=== PATIENT | male | born 1955 | race Caucasian/White ===

== ENCOUNTER 2016-07-21 20:33 | Emergency (ER) | payer OTHER ==
--- NOTE | 2016-07-22 00:38 | ER Document Report ---
ED General - General Chief Complaint: Leg Swelling Stated Complaint: POSSIBLE BLOOD CLOT ON LEFT LEG Notes: Patient presents with concerns of acute onset of left medial malleolus swelling just prior to arrival. States that he has had a dull, constant, aching pain to the area. Has some associated swelling. States the swelling has dramatically gone down since onset without intervention. He denies any history of similar symptoms in the past. Denies any associated calf or more proximal leg tenderness. No fever or constitutional symptoms. Has not noticed any spreading redness the area. TRAVEL OUTSIDE OF THE [place] IN LAST 30 DAYS: No - Related Data Allergies/Adverse Reactions: oxycodone HCl [From Percocet] Allergy (Severe, Verified 07/21/16 21:37) trouble breathing Past Medical History - General Information source: Patient - Social History Smoking Status: Never Smoker Chew tobacco use (# tins/day): No Frequency of alcohol use: None Drug Abuse: None Lives with: Spouse/Significant other Family History: Reviewed & Not Pertinent Patient has suicidal ideation: No Patient has homicidal ideation: No - Past Medical History Cardiac Medical History: Reports: Hx Hypertension Denies: Hx Atrial Fibrillation, Hx Congestive Heart Failure, Hx Coronary Artery Disease, Hx Heart Attack, Hx Hypercholesterolemia, Hx Peripheral Vascular Disease, Hx Pulmonary Embolism, Hx Heart Murmur Pulmonary Medical History: Denies: Hx Asthma, Hx Bronchitis, Hx COPD, Hx Pneumonia - 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 Denies: Hx Crohn's Disease, Hx Hiatal Hernia, Hx Irritable Bowel, Hx Liver Failure, Hx Ulcer Musculoskeltal Medical History: Reports Hx Arthritis, Reports Hx Musculoskeletal Deformity, Reports Hx Musculoskeletal Trauma Past Surgical History: Reports: Hx Abdominal Surgery, Hx Appendectomy, Hx Bowel Surgery, Hx Cholecystectomy, Hx Orthopedic Surgery - right knee, Hx Tonsillectomy. Denies: Hx Colostomy, Hx Coronary Artery Bypass Graft, Hx Gastric Bypass Surgery, Hx Herniorrhaphy, Hx Pacemaker - Immunizations Immunizations up to date: Yes Hx Diphtheria, Pertussis, Tetanus Vaccination: Yes - unk Review of Systems - Review of Systems Notes: Constitutional: Negative for fever. HENT: Negative for sore throat. Eyes: Negative for visual changes. Cardiovascular: Negative for chest pain. Respiratory: Negative for shortness of breath. Gastrointestinal: Negative for abdominal pain, vomiting or diarrhea. Genitourinary: Negative for dysuria. Musculoskeletal: Positive for left ankle pain and swelling Skin: Negative for rash. Neurological: Negative for headaches, weakness or numbness. 10 point ROS negative except as marked above and in HPI. Physical Exam - Vital signs Vitals: Temp Pulse Resp BP Pulse Ox 97.9 F 73 18 147/87 H 95 07/21/16 21:37 07/21/16 21:37 07/21/16 21:37 07/21/16 21:37 07/21/16 21:37 Interpretation: Hypertensive Notes: PHYSICAL EXAMINATION: GENERAL: Well-appearing, well-nourished and in no acute distress. HEAD: Atraumatic, normocephalic. EYES: Pupils equal round and reactive to light, extraocular movements intact, sclera anicteric, conjunctiva are normal. ENT: nares patent, oropharynx clear without exudates. Moist mucous membranes. NECK: Normal range of motion, supple without lymphadenopathy LUNGS: Breath sounds clear to auscultation bilaterally and equal. No wheezes rales or rhonchi. HEART: Regular rate and rhythm without murmurs ABDOMEN: Soft, nontender, normoactive bowel sounds. No guarding, no rebound. No masses appreciated. EXTREMITIES: Normal range of motion, mild swelling to the medial malleolus on the left. No pain on palpation left posterior proximal leg or the popliteal fossa. NEUROLOGICAL: No focal neurological deficits. Moves all extremities spontaneously and on command. PSYCH: Normal mood, normal affect. SKIN: Warm, Dry, normal turgor, mild swelling to the medial malleolus on the left Course - Re-evaluation Re-evalutation: 07/22/16 00:32 No evidence of a septic joint, gout flare, dislocation, or fracture on exam and imaging. Given clinical history suspect the patient does have a mild amount of osteoarthritis may have had an acute inflammatory episode that is now mostly resolved. I do not suspect an acute DVT as patient has no calf tenderness, popliteal fossa tenderness or pain over any other portion of the leg and has localized swelling only to the medial malleolus. Well's score is 0 and I do not believe further imaging is indicated at this time. Vitals wnl. At this time , I do not see an indication for labs or further imaging. Will discharge with conservative measures, return precautions, and follow-up recommendations. - Vital Signs Vital signs: Temp Pulse Resp BP Pulse Ox 97.5 F 66 20 135/85 H 95 07/22/16 01:40 07/22/16 01:40 07/22/16 01:40 07/22/16 01:40 07/22/16 01:40 - Diagnostic Test Radiology reviewed: Image reviewed, Reports reviewed Discharge - Discharge Clinical Impression: Left ankle pain Qualifiers: Chronicity: acute Qualified Code(s): M25.572 - Pain in left ankle and joints of left foot Condition: Good Disposition: HOME, SELF-CARE Additional Instructions: Your x-ray does not show any acute fracture today. I do not suspect a blood clot at this time. You should continue to take anti-inflammatories such as ibuprofen 600 mg every 6 hours. Continue to apply ice to the area is much your able. Please follow-up with your primary care physician if you do not have improving your symptoms in the next 1-2 weeks. Please return immediately if you develop weakness, numbness, spreading redness from the area, or any other symptoms that are concerning to you. Referrals: DAREK HERNANDEZ MD [Primary Care Provider] - Follow up as needed
[2016-07-22 01:41] VITALS: BP 135/85
== END 2016-07-22 01:00 | disposition home or self-care (01) ==
LOC: ER 20:33
DX: M25.572 Pain in left ankle and joints of left foot (principal); M79.89 Other specified soft tissue disorders
CPT/HCPCS: 99283

== ENCOUNTER 2017-03-17 21:10 | Inpatient (IN) | payer OTHER ==
[2017-03-17] MEDS ORDERED: NORMAL SALINE 1000 ML 1,000 ML IV ONE (23:22)
[2017-03-17] MEDS ORDERED: ONDANSETRON HCL INJ/PF 4 MG/2 ML SDV IV ONE (23:22)
[2017-03-17 23:58] LABS: ABSOLUTE LYMPHOCYTES (AUTO) 1.2 10^3/uL (0.5-4.7); ABSOLUTE MONOCYTES (AUTO) 0.4 10^3/uL (0.1-1.4); ABSOLUTE NEUT (AUTO) 8.9 10^3/uL (1.7-8.2); BASOPHILS % (AUTO) 0.4 % (0-2); EOSINOPHILS % (AUTO) 0.3 % (0-6); HEMATOCRIT 51.2 % (37.9-51.0); HEMOGLOBIN 17.8 g/dL (13.5-17.0); LYMPHOCYTES % (AUTO) 11.7 % (13-45); MEAN CORPUSCULAR HGB CONC 34.7 g/dL (32.0-36.0); MEAN CORPUSCULAR VOLUME 90 fl (80-97); MONOCYTES % (AUTO) 4.1 % (3-13); PLATELET COUNT 248 10^3/uL (150-450); RED BLOOD COUNT 5.73 10^6/uL (4.35-5.55); SEGMENTED NEUTROPHILS % (AUTO) 83.5 % (42-78); TOTAL CELLS COUNTED % (AUTO) 100 %; WHITE BLOOD COUNT 10.6 10^3/uL (4.0-10.5)
[2017-03-18 00:16] LABS: ALANINE AMINOTRANSFERASE 50 U/L (21-72); ALBUMIN 4.7 g/dL (3.5-5.0); ALKALINE PHOSPHATASE 73 U/L (38-126); ANION GAP 15 (5-19); ASPARTATE AMINO TRANSFERASE 29 U/L (17-59); BILIRUBIN,DIRECT 0.5 mg/dL (0.0-0.4); BILIRUBIN,TOTAL 0.7 mg/dL (0.2-1.3); BLOOD UREA NITROGEN 18 mg/dL (7-20); CALCIUM 10.4 mg/dL (8.4-10.2); CARBON DIOXIDE 25 mmol/L (22-30); CHLORIDE 102 mmol/L (98-107); GLUCOSE 139 mg/dL (75-110); LIPASE 61.4 U/L (23-300); POTASSIUM 4.5 mmol/L (3.6-5.0); SODIUM 141.9 mmol/L (137-145); TOTAL PROTEIN 7.8 g/dL (6.3-8.2)
--- NOTE | 2017-03-18 00:37 | ER Document Report ---
ED General - General Chief Complaint: Nausea/Vomiting/Diarrhea Stated Complaint: ABDOMINAL PAIN Time Seen by Provider: 03/17/17 23:21 Notes: Patient is a 61-year-old male with a past medical history of a sigmoid colectomy , cholecystectomy, hypertension, hyperlipidemia, who presents with 3 days of progressively worsening abdominal distention, diarrhea, nausea and vomiting. Patient states the vomiting did not start until today. He also notes that he began to have increasingly worsening abdominal pain throughout the day today which eventually prompted him to come to the emergency department. He describes his abdominal pain is a diffuse, cramping, throbbing pain. Nothing improves or worsens his pain. He denies any history of similar symptoms in the past. He has not had any fever or constitutional symptoms. States he has been able to tolerate sips of clear liquid but is unable to tolerate any solid food intake. TRAVEL OUTSIDE OF THE [place] IN LAST 30 DAYS: No - Related Data Allergies/Adverse Reactions: oxycodone HCl [From Percocet] Allergy (Severe, Verified 03/17/17 21:18) trouble breathing Past Medical History - General Information source: Patient - Social History Smoking Status: Never Smoker Frequency of alcohol use: None Drug Abuse: None Lives with: Spouse/Significant other Family History: Reviewed & Not Pertinent Patient has suicidal ideation: No Patient has homicidal ideation: No - Past Medical History Cardiac Medical History: Reports: Hx Hypertension Denies: Hx Atrial Fibrillation, Hx Congestive Heart Failure, Hx Coronary Artery Disease, Hx Heart Attack, Hx Hypercholesterolemia, Hx Peripheral Vascular Disease, Hx Pulmonary Embolism, Hx Heart Murmur Pulmonary Medical History: Denies: Hx Asthma, Hx Bronchitis, Hx COPD, Hx Respiratory Failure, Hx Sleep Apnea, Hx Tuberculosis Comment Only: Hx Pneumonia - 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 Denies: Hx Crohn's Disease, Hx Hiatal Hernia, Hx Irritable Bowel, Hx Liver Failure, Hx Pancreatitis, Hx Ulcer Musculoskeltal Medical History: Reports Hx Arthritis, Reports Hx Musculoskeletal Deformity, Reports Hx Musculoskeletal Trauma Past Surgical History: Reports: Hx Abdominal Surgery, Hx Appendectomy, Hx Bowel Surgery, Hx Cholecystectomy, Hx Orthopedic Surgery - right knee, Hx Tonsillectomy. Denies: Hx Colostomy, Hx Coronary Artery Bypass Graft, Hx Gastric Bypass Surgery, Hx Herniorrhaphy, Hx Pacemaker - Immunizations Immunizations up to date: Yes Hx Diphtheria, Pertussis, Tetanus Vaccination: Yes - unk Review of Systems - Review of Systems Notes: Constitutional: Negative for fever. HENT: Negative for sore throat. Eyes: Negative for visual changes. Cardiovascular: Negative for chest pain. Respiratory: Negative for shortness of breath. Gastrointestinal: Positive for abdominal pain, vomiting and diarrhea Genitourinary: Negative for dysuria. Musculoskeletal: Negative for back pain. Skin: Negative for rash. Neurological: Negative for headaches, weakness or numbness. 10 point ROS negative except as marked above and in HPI. Physical Exam - Vital signs Vitals: Temp Pulse Resp BP Pulse Ox 98.1 F 92 18 130/86 H 98 03/17/17 21:18 03/17/17 21:18 03/17/17 21:18 03/17/17 21:18 03/17/17 21:18 Interpretation: Normal Notes: PHYSICAL EXAMINATION: GENERAL: Appears uncomfortable no acute distress HEAD: Atraumatic, normocephalic. EYES: Pupils equal round and reactive to light, extraocular movements intact, sclera anicteric, conjunctiva are normal. ENT: nares patent, oropharynx clear without exudates. Dry mucous membranes. NECK: Normal range of motion, supple without lymphadenopathy LUNGS: Breath sounds clear to auscultation bilaterally and equal. No wheezes rales or rhonchi. HEART: Regular rate and rhythm without murmurs ABDOMEN: Distended, protuberant abdomen. Bowel sounds are present. Tympanic to percussion. Diffuse tenderness to palpation most localized to the upper quadrants of the abdomen. No rebound or guarding. EXTREMITIES: Normal range of motion, no pitting or edema. No cyanosis. NEUROLOGICAL: No focal neurological deficits. Moves all extremities spontaneously and on command. PSYCH: Normal mood, normal affect. SKIN: Warm, Dry, normal turgor, no rashes or lesions noted. Course - Re-evaluation Re-evalutation: 03/18/17 00:17 Patient presents with vomiting, inability to tolerate solid oral intake, abdominal distention, and only liquid bowel movements for the past 2 days. Primary concern is for a possible acute bowel obstruction given his surgical history of a partial colectomy and cholecystectomy in the past. Will obtain labs, CT imaging of the pelvis and provide IV fluids, pain control and reassess 03/18/17 02:24 CT scan does confirm my clinical suspicion of an acute bowel obstruction. NG tube will be placed. I have discussed with Dr. Erickson was agreed to admit the patient to his service. - Vital Signs Vital signs: Temp Pulse Resp BP Pulse Ox 97.7 F 80 20 126/82 H 97 03/18/17 00:01 03/18/17 00:01 03/18/17 00:01 03/18/17 00:01 03/18/17 00:01 - Laboratory Result Diagrams: 03/17/17 23:45 03/17/17 23:45 Laboratory results interpreted by me: 03/17/17 03/17/17 23:45 23:45 WBC 10.6 H RBC 5.73 H Hgb 17.8 H Hct 51.2 H Seg Neutrophils % 83.5 H Lymphocytes % 11.7 L Absolute Neutrophils 8.9 H Creatinine 1.41 H Est GFR (Non-Af Amer) 51 L Glucose 139 H Calcium 10.4 H Direct Bilirubin 0.5 H - Diagnostic Test Radiology reviewed: Reports reviewed Discharge - Discharge Clinical Impression: Persistent vomiting, Generalized abdominal pain Bowel obstruction Qualifiers: Intestinal obstruction type: unspecified Intestinal obstruction extent: partial Qualified Code(s): K56.600 - Partial intestinal obstruction, unspecified as to cause Condition: Fair Disposition: ADMITTED INPATIENT Admitting Provider: [facility] Unit Admitted: Surgical Floor Referrals: DAREK HERNANDEZ MD [Primary Care Provider] - Follow up as needed
[2017-03-18] MEDS: MORPHINE SULFATE 10 MG/ML INJ IV PRN ×3 (01:04→22:23)
--- NOTE | 2017-03-18 01:57 | RADIOLOGY REPORT (SQ) ---
EXAM DESCRIPTION: CT ABD/PELVIS WITH IV ONLY COMPLETED DATE/TIME: 03/18/2017 1:37 am REASON FOR STUDY: eval obstruction COMPARISON: None. TECHNIQUE: CT scan of the abdomen and pelvis performed using helical scanning technique with dynamic intravenous contrast injection. No oral contrast. Images reviewed with lung, soft tissue, and bone windows. Reconstructed coronal and sagittal MPR images reviewed. Delayed images for evaluation of the urinary system also acquired. All images stored on PACS. All CT scanners at this facility use dose modulation, iterative reconstruction, and/or weight based d osing when appropriate to reduce radiation dose to as low as reasonably achievable (ALARA). [facility]: Dose Right [facility]: CareDose [facility]: Dose Right [facility]: Teradose 4D [facility]: Admetric CONTRAST TYPE AND DOSE: contrast/concentration: Isovue 370.00 mg/ml; Total Contrast Delivered: 100.0 ml; Total Saline Delivered: 40.0 ml RENAL FUNCTION: Creatinine 1.41 RADIATION DOSE: CT Rad equipment meets quality standard of care and radiation dose reduction techniq ues were employed. CTDIvol: 19.8 mGy. DLP: 2329 mGy-cm.. LIMITATIONS: None. FINDINGS: LOWER CHEST: No consolidation or pleural effusion. LIVER: Diffuse decreased attenuation, most consistent with fatty infiltration. No dilated ducts. SPLEEN: Normal size. PANCREAS: No significant calcifications. No adjacent inflammation or peripancreatic fluid collections . Pancreatic duct not dilated. GALLBLADDER: Surgically absent. ADRENAL GLANDS: No significant masses or asymmetry. RIGHT KIDNEY AND URETER: 4 mm nonobstructing calcification at the inferior pole of the right kidney. No hydronephrosis or hydroureter. LEFT KIDNEY AND URETER: There is a 3.5 cm cyst at the inferior pole of the left kidney. No signific ant calcifications. No hydronephrosis or hydroureter. AORTA AND VESSELS: No abdominal aortic aneurysm. RETROPERITONEUM: No retroperitoneal adenopathy, hemorrhage or masses. BOWEL AND PERITONEAL CAVITY: The stomach is distended with an air-fluid level. Air-fluid levels are also seen within dilated small bowel loops. Collapsed loops of bowels are seen in the midline anteri or abdomen. Air-fluid levels are seen within nondilated colon. Scattered diverticula at the colon w ith no CT evidence for acute diverticulitis. APPENDIX: Not visualized. PELVIS: The urinary bladder is decompressed. No pelvic mass or free fluid. ABDOMINAL WALL: Small fat containing umbilical hernia. Small fat containing left inguinal hernia. BONES: Degenerative changes in the spine, worse at L5-S1 with complete loss of the intervertebral dis c space. Pars defect at L5. No significant listhesis. IMPRESSION: Distended stomach with an air-fluid level and air-fluid levels within dilated small lisa l loops, concerning for small bowel obstruction. Fatty infiltration of the liver. Nonobstructing right nephrolithiasis. Left renal cyst. Mild colonic diverticulosis. TECHNICAL DOCUMENTATION: JOB ID: [id number] Quality ID # [id number]: Final reports with documentation of one or more dose reduction techniques (e.g., Au tomated exposure control, adjustment of the mA and/or kV according to patient size, use of iterative reconstruction technique) 2010 [employer]- All Rights Reserved
[2017-03-18] MEDS ORDERED: MIDAZOLAM 2 MG/2 ML INJ IV ONE (02:13)
[2017-03-18] MEDS ORDERED: ONDANSETRON HCL INJ/PF 4 MG/2 ML SDV IV PRN (02:47)
[2017-03-18] MEDS ORDERED: KETOROLAC TROMETHAMINE INJ/PF 30 MG/1 ML SDV IV PRN (02:47)
[2017-03-18] MEDS ORDERED: NORMAL SALINE 1000 ML 2,000 ML IV ONE (04:04)
--- NOTE | 2017-03-18 05:58 | HISTORY AND PHYSICAL E ---
History and Physical NAME: TOM BRADEN : 1955 AGE: 61Y ADMITTED: 03/18/2017 ROOM: 316 REFERRING PHYSICIAN: Patient seen at the request of Dr. Ralph Stratton in the emergency department. CHIEF COMPLAINT: Abdominal pain. HISTORY OF PRESENTING ILLNESS: The patient is a 61-year-old white male, originally from [place], who presented to the emergency department with a progressive worsening 3-day history of abdominal pain, nausea, diarrhea, and 1-day history of vomiting. He denies similar episodes. He denies history of trauma or previous abdominal issues. He was seen in the emergency department where he was found to have abdominal distention. A CT scan of the abdomen and pelvis was performed which showed findings consistent with a small-bowel obstruction. Surgery was consulted. He was advised admission. Patient stated there was no improvement with p.o. [id number] pain medications. He has never had a bowel obstruction before. He has had previous abdominal surgery. ALLERGIES: PENICILLIN causes trouble breathing. MEDICATIONS: Multiple including lisinopril, amlodipine, aspirin, phentermine, loratadine, trazodone, finasteride, proton pump inhibitor, fenofibrate. IMMUNIZATIONS: Up to date. SOCIAL HISTORY: Patient does not smoke. He works from home. PAST MEDICAL HISTORY: Significant for hypertension, obesity, history of fungal infection left lung, history of GERD, history of arthritis, anxiety disorder. PAST SURGICAL HISTORY: Significant for open cholecystectomy; open sigmoid colectomy for diverticular disease in 1999; previous colonoscopy 2 years ago, Dr. Morris, unremarkable. REVIEW OF SYSTEMS: CONSTITUTIONAL: Patient denies. CARDIOVASCULAR: Patient denies. RESPIRATORY: Patient denies. GASTROINTESTINAL: As per HPI. PHYSICAL EXAMINATION: Patient examined in the emergency department. VITAL SIGNS: 98.1, pulse 92, respirations 18, blood pressure 130/86, pulse ox 98% on room air. GENERAL: No acute distress. HEAD: No evidence of trauma. EYES: Without icterus. PSYCHIATRIC: Patient has a stutter. NEUROLOGIC: As above. EARS, NOSE, THROAT: Grossly unremarkable. LUNGS: Diminished in bases bilaterally. HEART: Without murmur or gallop. ABDOMEN: Generally distended, tympanitic but nontender. Patient did receive pain medication earlier. Multiple scars (from previous surgery). EXTREMITIES: No edema. Palpable dorsalis pedis, posterior tibial pulses as well as radial and ulnar pulses. NEUROLOGIC: No gross defects. LABORATORY PROFILE: Shows a hemoglobin of 17.8. Creatinine of 1.41, calcium of 10.4, glucose of 139. CT scan of the abdomen and pelvis with IV contrast only shows a left renal cortical cyst, scattered left-sided diverticuloses without diverticulitis. No oral contrast, dilated stomach proximal small bowel; fairly collapsed distal small bowel. IMPRESSION: 1. Small-bowel obstruction, likely partial, with no evidence of peritonitis. 2. Previous abdominal surgery. 3. History of hypertension, anxiety disorder, obesity. RECOMMENDATION: 1. Patient will be admitted to the surgical service, kept n.p.o., IV fluids, nasogastric decompression, and H2 luciano. 2. Patient understands that if he fails medical management he may require exploratory laparotomy, but the likelihood of this is low. DICTATING PHYSICIAN: FRANK ZARATE M.D. [id number] PHY#: [id number] ID: [id number] JOB#: [id number] ACCT: [id number] cc:DAREK HERNANDEZ M.D. >
[2017-03-18 07:19] LABS: ANION GAP 15 (5-19); BLOOD UREA NITROGEN 19 mg/dL (7-20); CALCIUM 9.5 mg/dL (8.4-10.2); CARBON DIOXIDE 22 mmol/L (22-30); CHLORIDE 107 mmol/L (98-107); GLUCOSE 118 mg/dL (75-110); POTASSIUM 4.3 mmol/L (3.6-5.0); SODIUM 144.4 mmol/L (137-145)
[2017-03-18] MEDS: FAMOTIDINE INJ/PF 20 MG/2 ML SDV IV SCH ×2 (09:33→22:23)
[2017-03-18] MEDS: NORMAL SALINE 1000 ML 1,000 ML IV PRN ×2 (15:46→22:23)
[2017-03-18] MEDS ORDERED: DEXTROSE 40% GEL 15 GM TUBE PO PRN ×2 (16:25)
[2017-03-18] MEDS ORDERED: DEXTROSE 50%-WATER 25 GM/50 ML DISP.SYRIN IV PRN ×2 (16:25)
[2017-03-18] MEDS ORDERED: GLUCAGON,HUMAN RECOMB 1 MG INJ SUBCUT PRN (16:25)
--- NOTE | 2017-03-18 20:01 | PDOC PROGRESS REPORT ---
Subjective Progress Note for:: 03/18/17 Subjective:: Nausea and vomiting which appears have been resolved with the NG tube. Reason For Visit: SMALL BOWEL OBSTRUCTION Physical Exam Vital Signs: Temp Pulse Resp BP Pulse Ox 97.7 F 77 16 134/77 H 99 03/18/17 16:14 03/18/17 16:14 03/18/17 16:14 03/18/17 16:14 03/18/17 16:14 Intake & Output 03/17/17 03/18/17 03/19/17 06:59 06:59 06:59 Intake Total 1000 1650 Output Total 950 375 Balance 50 1275 Weight 113.6 kg Exam: Abdomen is soft and nontender Results Laboratory Results: 03/18/17 06:48 03/18/17 06:48 Sodium 144.4 Potassium 4.3 Chloride 107 Carbon Dioxide 22 Anion Gap 15 BUN 19 Creatinine 1.20 Est GFR ( Amer) > 60 Est GFR (Non-Af Amer) > 60 Glucose 118 H Calcium 9.5 Impressions: Abdomen/Pelvis CT 03/18/17 00:16 IMPRESSION: Distended stomach with an air-fluid level and air-fluid levels within dilated small bowel loops, concerning for small bowel obstruction. Fatty infiltration of the liver. Nonobstructing right nephrolithiasis. Left renal cyst. Mild colonic diverticulosis. Assessment & Plan - Time Time Spent with patient: 15-24 minutes - Inpatient Certification Medical Necessity: Need For IV Fluids, Risk of Complication if Not Cared For in Hospital - Plan Summary Plan Summary: #1 Patient Pass flatus today. The NG tube was discontinued but keep him n.p.o. except for ice chips today and possibly start on clear liquids in the morning
[2017-03-19 05:41] LABS: ABSOLUTE BASOPHILS # (AUTO) 0.1 10^3/uL (0.0-0.2); ABSOLUTE EOSINOPHILS # (AUTO) 0.3 10^3/uL (0.0-0.6); ABSOLUTE LYMPHOCYTES (AUTO) 2.3 10^3/uL (0.5-4.7); ABSOLUTE MONOCYTES (AUTO) 0.5 10^3/uL (0.1-1.4); ABSOLUTE NEUT (AUTO) 3.3 10^3/uL (1.7-8.2); BASOPHILS % (AUTO) 1.2 % (0-2); EOSINOPHILS % (AUTO) 5.3 % (0-6); LYMPHOCYTES % (AUTO) 35.1 % (13-45); MEAN CORPUSCULAR HEMOGLOBIN 31.6 pg (27.0-33.4); MEAN CORPUSCULAR HGB CONC 35.1 g/dL (32.0-36.0); MEAN CORPUSCULAR VOLUME 90 fl (80-97); MONOCYTES % (AUTO) 8.1 % (3-13); PLATELET COUNT 197 10^3/uL (150-450); RED BLOOD COUNT 4.54 10^6/uL (4.35-5.55); RED CELL DISTRIBUTION WIDTH 13.5 % (11.5-14.0); SEGMENTED NEUTROPHILS % (AUTO) 50.3 % (42-78); TOTAL CELLS COUNTED % (AUTO) 100 %; WHITE BLOOD COUNT 6.5 10^3/uL (4.0-10.5)
[2017-03-19 05:44] LABS: HEMOGLOBIN 14.4 g/dL (13.5-17.0)
[2017-03-19 05:46] LABS: ANION GAP 11 (5-19); BLOOD UREA NITROGEN 23 mg/dL (7-20); CALCIUM 8.5 mg/dL (8.4-10.2); CARBON DIOXIDE 24 mmol/L (22-30); CHLORIDE 110 mmol/L (98-107); GLUCOSE 79 mg/dL (75-110); POTASSIUM 4.7 mmol/L (3.6-5.0); SODIUM 144.6 mmol/L (137-145)
[2017-03-19] MEDS: FAMOTIDINE INJ/PF 20 MG/2 ML SDV IV SCH (09:55)
[2017-03-19 17:47] VITALS: BP 126/82
--- NOTE | 2017-03-19 19:43 | PDOC DISCHARGE SUMMARY ---
Discharge Summary (SDC) - Discharge Final Diagnosis: Partial small bowel obstruction Discharge Date: 03/19/17 Condition: Good Forms: Discharge POC-Adult Treatment or Instructions: Continue full liquids for the next 2 days at home then gradually increase it to soft diet. 2. Make appointment with GI care of Dr. Morris 3. Follow-up with surgical clinic in the next 2 weeks 4. May follow up with PMD Referrals: ECTOR MORRIS MD [EMERITUS] - (Patient stated that he will make his own appointment.) FRANK ZARATE MD [ACTIVE STAFF] - 03/25/17 1:00 pm DAREK HERNANDEZ MD [Primary Care Provider] - 03/26/17 3:45 pm Discharge Diet: Full Liquids Discharge Activity: Activity As Tolerated Home Care Assistance: None Needed Report the Following to Your Physician Immediately: Nausea, Vomiting, IV Site Infection Signs
--- NOTE | 2017-03-19 19:46 | PDOC PROGRESS REPORT ---
Subjective Progress Note for:: 03/18/17 Subjective:: Has small amount of flatus today Reason For Visit: SMALL BOWEL OBSTRUCTION Physical Exam Vital Signs: Temp Pulse Resp BP Pulse Ox 97.5 F 66 18 126/82 H 98 03/19/17 17:30 03/19/17 17:30 03/19/17 17:30 03/19/17 17:30 03/19/17 17:30 Intake & Output 03/18/17 03/19/17 03/20/17 06:59 06:59 06:59 Intake Total 1000 1650 1050 Output Total 950 375 Balance 50 1275 1050 Weight 113.6 kg 116.8 kg Exam: Abdomen is soft and nontender Results Laboratory Results: 03/19/17 04:35 03/19/17 04:35 03/19/17 03/19/17 04:35 04:35 WBC 6.5 RBC 4.54 Hgb 14.4 D Hct 41.0 MCV 90 MCH 31.6 MCHC 35.1 RDW 13.5 Plt Count 197 Seg Neutrophils % 50.3 Lymphocytes % 35.1 Monocytes % 8.1 Eosinophils % 5.3 Basophils % 1.2 Absolute Neutrophils 3.3 Absolute Lymphocytes 2.3 Absolute Monocytes 0.5 Absolute Eosinophils 0.3 Absolute Basophils 0.1 Sodium 144.6 Potassium 4.7 Chloride 110 H Carbon Dioxide 24 Anion Gap 11 BUN 23 H Creatinine 1.24 Est GFR ( Amer) > 60 Est GFR (Non-Af Amer) 59 L Glucose 79 Calcium 8.5 Impressions: Abdomen/Pelvis CT 03/18/17 00:16 IMPRESSION: Distended stomach with an air-fluid level and air-fluid levels within dilated small bowel loops, concerning for small bowel obstruction. Fatty infiltration of the liver. Nonobstructing right nephrolithiasis. Left renal cyst. Mild colonic diverticulosis. Assessment & Plan - Time Time Spent with patient: 15-24 minutes - Plan Summary Plan Summary: #1 DC NG tube but keep n.p.o. tonight 2. If continues to pass flatus in the morning he can be started on clear liquid diet clear liquids and advance to full liquids as tolerated then possibly discharge
== END 2017-03-19 18:53 | disposition home or self-care (01) | DRG 389 ==
LOC: ER 21:10 → EH 03-18 02:38 → 3W 03-18 03:56
PROVIDERS: ADMIT Surgery; ATTEND Surgery
PROC: 0D9670Z Drainage of Stomach with Drainage Device, Via Natural or Artificial Opening (ICD-10-PCS; principal; 2017-03-18)
DX: K56.609 Unspecified intestinal obstruction, unspecified as to partial versus complete obstruction (principal); Q61.01 Congenital single renal cyst; I10 Essential (primary) hypertension; K21.9 Gastro-esophageal reflux disease without esophagitis; E66.9 Obesity, unspecified; Z68.36 Body mass index [BMI] 36.0-36.9, adult; M19.90 Unspecified osteoarthritis, unspecified site; F41.9 Anxiety disorder, unspecified; Z88.0 Allergy status to penicillin; Z90.49 Acquired absence of other specified parts of digestive tract
CPT/HCPCS: 36415; 74177; 80048; 80053; 83690; 84484; 85025; 96361; 96374; 99285; J2250; J2270; J2405; J7030; S0028

== ENCOUNTER → 2017-10-07 | Outpatient (CLI) | payer OTHER ==
--- NOTE | 2017-10-09 08:19 | RADIOLOGY REPORT (SQ) ---
EXAM DESCRIPTION: MRI LT UPPER JOINT WITHOUT COMPLETED DATE/TIME: 10/07/2017 5:41 pm REASON FOR STUDY: M66.822 SPONTANEOUS RUPTURE OF OTHER TENDONS, LEFT UPPER ARM M66.822 SPONTANEOUS RUPTURE OF OTHER TENDONS, LEFT UPPER ARM COMPARISON: None. TECHNIQUE: Left elbow images acquired and stored on PACS. Multiplanar images to include fat sensitiv e sequences as T1, fluid sensitive sequences as T2/STIR, cartilage sensitive sequences as FSPD, and g radient echo sequences. LIMITATIONS: Large patient, limited options for elbow placement within the scanner itself. Exam foc used on the anatomy at the distal biceps tendon. FINDINGS: There is a full-thickness tear at the distal attachment of the biceps tendon to the radial tuberosity. There is a gap in the tendon of about 3 cm. Proximal retraction of the biceps tendon i s seen on sagittal series 22, image 20. There is tear at the musculotendinous junction of the distal biceps, evident on axial series 15, imag es 16-23. In the distal biceps muscle itself, a 2.5 cm and 1.5 cm hematoma are present. There is diffuse edema in the subcutaneous tissues throughout the antecubital fossa. BONE MARROW: No alteration of signal to suggest marrow replacement or edema. No occult fracture. No l arge osteophytes. JOINT EFFUSION: None noted. No loose bodies. ARTICULAR SURFACES: Normal. MEDIAL COLLATERAL LIGAMENT COMPLEX: Grossly intact MEDIAL EPICONDYLE AND COMMON FLEXOR TENDON: No tendinopathy. No partial or full-thickness tear. LATERAL COLLATERAL LIGAMENT: Grossly intact LATERAL EPICONDYLE AND COMMON EXTENSOR TENDON: No tendinopathy. No partial or full-thickness tear. LATERAL ULNAR COLLATERAL LIGAMENT: Grossly intact BICEPS TENDON: As above TRICEPS TENDON: Grossly intact ULNAR NERVE: Grossly intact ADJACENT SOFT TISSUES: Subcutaneous edema throughout the antecubital fossa OTHER: No other significant finding. IMPRESSION: Full-thickness tear of the distal attachment of the biceps tendon to the radial tuberosi ty. Tear extends more proximally into the musculotendinous junction, with small intramuscular hemato mas in the distal biceps muscle itself TECHNICAL DOCUMENTATION: JOB ID: [id number] [employer]- All Rights Reserved Reading location - IP/workstation name: [email or web address]
== END ==
LOC: RAD 17:01
PROVIDERS: ATTEND Orthopaedic Surgery
DX: M66.822 Spontaneous rupture of other tendons, left upper arm (principal)

== ENCOUNTER → 2017-10-10 | Outpatient (CLI) | payer OTHER ==
[2017-10-10 13:51] LABS: ABSOLUTE EOSINOPHILS # (AUTO) 0.2 10^3/uL (0.0-0.6); ABSOLUTE LYMPHOCYTES (AUTO) 2.3 10^3/uL (0.5-4.7); ABSOLUTE MONOCYTES (AUTO) 0.4 10^3/uL (0.1-1.4); ABSOLUTE NEUT (AUTO) 3.2 10^3/uL (1.7-8.2); BASOPHILS % (AUTO) 0.6 % (0-2); EOSINOPHILS % (AUTO) 3.2 % (0-6); HEMATOCRIT 45.9 % (37.9-51.0); LYMPHOCYTES % (AUTO) 37.2 % (13-45); MEAN CORPUSCULAR HEMOGLOBIN 31.2 pg (27.0-33.4); MEAN CORPUSCULAR HGB CONC 34.8 g/dL (32.0-36.0); MEAN CORPUSCULAR VOLUME 90 fl (80-97); PLATELET COUNT 220 10^3/uL (150-450); RED BLOOD COUNT 5.12 10^6/uL (4.35-5.55); RED CELL DISTRIBUTION WIDTH 13.9 % (11.5-14.0); TOTAL CELLS COUNTED % (AUTO) 100 %; WHITE BLOOD COUNT 6.1 10^3/uL (4.0-10.5)
[2017-10-10 14:12] LABS: ANION GAP 13 (5-19); BLOOD UREA NITROGEN 17 mg/dL (7-20); CALCIUM 9.9 mg/dL (8.4-10.2); CARBON DIOXIDE 25 mmol/L (22-30); CHLORIDE 107 mmol/L (98-107); GLUCOSE 93 mg/dL (75-110); POTASSIUM 4.9 mmol/L (3.6-5.0)
--- NOTE | 2017-10-10 15:58 | EKG REPORT ---
SEVERITY:- NORMAL ECG - SINUS RHYTHM : Confirmed by: Eric Stoddard 10-Oct-2017 15:57:21
== END ==
LOC: OD 11:53
PROVIDERS: ATTEND Orthopaedic Surgery
DX: Z01.818 Encounter for other preprocedural examination (principal); I10 Essential (primary) hypertension
CPT/HCPCS: 36415; 80048; 85025; 93005; 93010

== ENCOUNTER 2017-10-16 11:32 | Day surgery (SDC) | payer OTHER ==
[2017-10-15 10:45] LABS: APPEARANCE,URINE CLEAR; BILIRUBIN,URINE NEGATIVE (NEGATIVE); COLOR,URINE YELLOW; GLUCOSE, URINE NEGATIVE (NEGATIVE); KETONES,URINE NEGATIVE (NEGATIVE); LEUKOCYTE ESTERASE,URINE NEGATIVE (NEGATIVE); NITRITE,URINE NEGATIVE (NEGATIVE); PROTEIN,URINE NEGATIVE (NEGATIVE); URINE SPECIFIC GRAVITY 1.018
--- NOTE | 2017-10-15 11:38 | RADIOLOGY REPORT (SQ) ---
EXAM DESCRIPTION: CHEST PA/LATERAL COMPLETED DATE/TIME: 10/15/2017 10:30 am REASON FOR STUDY: PRE-OP COMPARISON: 12/30/2014 EXAM PARAMETERS: NUMBER OF VIEWS: two views TECHNIQUE: Digital Frontal and Lateral radiographic views of the chest acquired. RADIATION DOSE: NA LIMITATIONS: none FINDINGS: LUNGS AND PLEURA: No opacities, masses or pneumothorax. No pleural effusion. MEDIASTINUM AND HILAR STRUCTURES: No masses or contour abnormalities. HEART AND VASCULAR STRUCTURES: Heart normal size. No evidence for failure. BONES: No acute findings. HARDWARE: None in the chest. OTHER: No other significant finding. IMPRESSION: NO SIGNIFICANT RADIOGRAPHIC FINDING IN THE CHEST. TECHNICAL DOCUMENTATION: JOB ID: [id number] [employer]- All Rights Reserved Reading location - IP/workstation name: [email or web address]
[~2017-10-16 11:32] MED LIST: CEFAZOLIN 2 GM/D5W RTU 2 GM/50 ML RTUPB IV PRN; RINGERS SOLUTION,LACTATED 1,000 ML IV PRN
[2017-10-16] MEDS ORDERED: ACETAMINOPHEN 1,000 MG/100 ML RTUPB IV ONE (12:03)
[2017-10-16] MEDS ORDERED: FENTANYL CITRATE INJ/PF 100 MCG/2 ML AMPUL ONE ×2 (12:03→13:55)
[2017-10-16] MEDS ORDERED: PROPOFOL INJ 200 MG/20 ML VIAL IV ONE (12:03)
[2017-10-16] MEDS ORDERED: MIDAZOLAM 2 MG/2 ML INJ ONE ×2 (12:03→13:47)
[2017-10-16] MEDS ORDERED: EPHEDRINE SULFATE INJ 50 MG/1 ML AMPULE ONE (12:05)
[2017-10-16] MEDS ORDERED: BUPIVACAINE HCL 0.25% /EPINEPHRINE INJ/PF 30 ML SDV ONE (12:58)
[2017-10-16] MEDS ORDERED: PROMETHAZINE HCL INJ 25 MG/1 ML VIAL IV PRN ×2 (13:02)
[2017-10-16] MEDS ORDERED: DIPHENHYDRAMINE HCL 50 MG/ML VIAL IV PRN (13:02)
[2017-10-16] MEDS ORDERED: ONDANSETRON HCL INJ/PF 4 MG/2 ML SDV IV PRN (13:02)
[2017-10-16] MEDS ORDERED: MEPERIDINE HCL/PF INJ 25 MG/1 ML DISP.SYRIN IV PRN (13:02)
[2017-10-16] MEDS ORDERED: FENTANYL CITRATE INJ/PF 100 MCG/2 ML AMPUL IV PRN ×3 (13:02)
[2017-10-16] MEDS ORDERED: HYDROCODONE/ACETAMINOPHEN 5-325 MG TABLET PO PRN ×2 (14:15→14:40)
--- NOTE | 2017-10-16 14:15 | Discharge Summary ---
Discharge Summary (SDC) - Discharge Final Diagnosis: Repair of left distal biceps tendon Date of Surgery: 10/16/17 Discharge Date: 10/16/17 Condition: Good Treatment or Instructions: Patient is instructed to follow up in 10-14 days. Keep the brace locked and wear at all times except for showers. Patient instructed to remove dressing in 4 days then okay to shower. No heavy lifting or carrying. Patient to wear sling for comfort Patient instructed to call if there is any signs of redness or drainage fevers or chills. Prescriptions: Hydrocodone/Acetaminophen [[place] 5-325 Tablet] 1 - 2 tab PO ASDIR PRN #40 tab PRN Reason: Referrals: DAREK HERNANDEZ MD [Primary Care Provider] - Discharge Diet: As Tolerated Respiratory Treatments at Home: Deep Breathing/Coughing Discharge Activity: No Driving, No Lifting/Push/Pulling, Slowly Increase Activity, Walk Frequently Home Care Assistance: None Needed Report the Following to Your Physician Immediately: Shortness of Breath, Vomiting, Increase in Pain, Fever over 101 Degrees, Unusual Bleeding, Redness, Swelling, Warmth, Increased Soreness, Drainage-Yellow, Drainage-Sanchez, Drainage- Green, Drainage-Foul Smelling
--- NOTE | 2017-10-16 14:21 | RADIOLOGY REPORT (SQ) ---
EXAM DESCRIPTION: NO CHG FLUORO; ELBOW LEFT AP/LATERAL COMPLETED DATE/TIME: 10/16/2017 1:55 pm REASON FOR STUDY: LEFT ELBOW BICEP REPAIR ASST WITH FLUORO IN OR S46.212A STRAIN OF MUSC/FASC/TEND PRT BICEPS, LEFT ARM, INIT COMPARISON: None. FLUOROSCOPY TIME: 13 seconds. 3 images saved to PACS. TECHNIQUE: Intra-operative images acquired during surgical procedure to evaluate progress. NUMBER OF IMAGES: 3 images. LIMITATIONS: None. FINDINGS: Placement hardware in the proximal radius. IMPRESSION: IMAGE(S) OBTAINED DURING PROCEDURE. COMMENT: Quality ID 145: Final reports for procedures using fluoroscopy that document radiation exp osure indices, or exposure time and number of fluorographic images (if radiation exposure indices are not available) Please consult full operative report of the attending physician for description of the procedure. TECHNICAL DOCUMENTATION: JOB ID: [id number] [employer]- All Rights Reserved Reading location - IP/workstation name: [email or web address]
--- NOTE | 2017-10-16 14:21 | RADIOLOGY REPORT (SQ) ---
EXAM DESCRIPTION: NO CHG FLUORO; ELBOW LEFT AP/LATERAL COMPLETED DATE/TIME: 10/16/2017 1:55 pm REASON FOR STUDY: LEFT ELBOW BICEP REPAIR ASST WITH FLUORO IN OR S46.212A STRAIN OF MUSC/FASC/TEND PRT BICEPS, LEFT ARM, INIT COMPARISON: None. FLUOROSCOPY TIME: 13 seconds. 3 images saved to PACS. TECHNIQUE: Intra-operative images acquired during surgical procedure to evaluate progress. NUMBER OF IMAGES: 3 images. LIMITATIONS: None. FINDINGS: Placement hardware in the proximal radius. IMPRESSION: IMAGE(S) OBTAINED DURING PROCEDURE. COMMENT: Quality ID 145: Final reports for procedures using fluoroscopy that document radiation exp osure indices, or exposure time and number of fluorographic images (if radiation exposure indices are not available) Please consult full operative report of the attending physician for description of the procedure. TECHNICAL DOCUMENTATION: JOB ID: [id number] [employer]- All Rights Reserved Reading location - IP/workstation name: [email or web address]
[2017-10-16] MEDS: FENTANYL CITRATE INJ/PF 100 MCG/2 ML AMPUL ONE ×4 (14:22→14:52)
[2017-10-16] MEDS ORDERED: ROPIVACAINE HCL 0.5% INJ/PF (5 MG/1 ML) 30 ML SDV ONE (14:56)
[2017-10-16] MEDS ORDERED: LIDOCAINE 2%/EPINEPHRINE INJ 20 ML VIAL ONE (14:58)
[2017-10-16] MEDS ORDERED: LIDOCAINE 2% INJ-PF (20 MG/ML) 10 ML AMPUL ONE (14:58)
[2017-10-16] MEDS ORDERED: LIDOCAINE 2% INJ (20 MG/ML) 20 ML MDV ONE (15:02)
[2017-10-16 17:12] VITALS: BP 126/71
[2017-10-16] MEDS ORDERED: KETOROLAC TROMETHAMINE 60 MG/2 ML SDV ONE (20:19)
[2017-10-16] MEDS ORDERED: DEXAMETHASONE SOD PHOSPHATE INJ 4 MG/1 ML VIAL ONE (20:19)
[2017-10-16] MEDS ORDERED: SUCCINYLCHOLINE CHLORIDE INJ 200 MG/10 ML VIAL ONE (20:19)
[2017-10-16] MEDS ORDERED: METOCLOPRAMIDE HCL INJ/PF 10 MG/2 ML SDV ONE (20:19)
[2017-10-16] MEDS ORDERED: ONDANSETRON HCL INJ/PF 4 MG/2 ML SDV ONE (20:19)
--- NOTE | 2017-10-19 10:21 | Operative Report ---
Operative Report DATE OF SURGERY: 10/16/17 PREOPERATIVE DIAGNOSIS: Left distal biceps rupture OPERATION: Same ANESTHESIA: GA TISSUE REMOVED OR ALTERED: None COMPLICATIONS: None ESTIMATED BLOOD LOSS: 20m INTRAOPERATIVE FINDINGS: As above PROCEDURE: Patient was brought to the operating room and successfully induced and intubated in a supine position. Patient did receive preoperative antibiotics in the holding area. The left upper extremity tourniquet was applied. Left upper extremity was prepped and draped in a normal sterile surgical fashion. Timeout was done identifying the left elbow is a correct site. Esmarch was used to exsanguinate the extremity and the tourniquet was inflated at 250 mmHg. We follow the technique guide from [employer] and did a transverse incision 3 cm distal to the groove. Dissection was bluntly done with Metzenbaum scissors. Was able to identify the biceps which was fully ruptured but had a a wisp of tissue attached. This was released and then the biceps and was trimmed and cleaned off and a FiberWire loop was used to secure the tendon. Make sure that the tendon passed through an 8 mm tunnel. We fed the 2 strands of the FiberWire through the button and secured it with a hemostat. We turned attention to exposing the radial tuberosity by using which is in an [employer] to distract the musculature and tissue. We able to rondure and remove the tendon remaining on the bone. I used a spade tip guidepin to place it in the radial tuberosity and used a mini C-arm for location and placement. I redressed of those 2 proximal so we drilled and moved more distal. Once I was satisfied that I was on the radial tuberosity and cheating ulnarly I then used the reamer to ream the proximal cortex. The spade tip guidepin was removed and then I was able to feed the button through the predrilled hole and flipped it in the far cortex successfully. I then was able to sense the tendon back into the predrilled hole. I then used a free needle to then pass another stitch and secure the tendon further. I tried to use the interference screw but I felt like the screw was not going to stay in place so I aborted that portion of the technique. The tendon was secured and the patient had full range of motion. Irrigation was used to clean the elbow and then we proceeded to close the subcutaneous tissue with 2-0 Vicryl and then used a running stitch with a 4-0 Monocryl in a subcuticular fashion. Dermabond was applied followed by Steri- Strips. 4 x 4 dressing and soft roll and then overwrapped with an Jim bandage. Tourniquet was let down and the drapes were removed and the patient was extubated and sent to PACU in stable condition.
== END 2017-10-16 17:05 | disposition home or self-care (01) ==
LOC: OROUT 11:32
PROVIDERS: ATTEND Orthopaedic Surgery
DX: M66.822 Spontaneous rupture of other tendons, left upper arm (principal); I10 Essential (primary) hypertension; K21.9 Gastro-esophageal reflux disease without esophagitis; G47.33 Obstructive sleep apnea (adult) (pediatric); E04.1 Nontoxic single thyroid nodule; Z79.899 Other long term (current) drug therapy; Z86.73 Personal history of transient ischemic attack (TIA), and cerebral infarction without residual deficits; Z88.5 Allergy status to narcotic agent; Z01.818 Encounter for other preprocedural examination
CPT/HCPCS: 81001; 71046; 73070; 24341; J2795; J2250; J3490 ×5; J1100; J1885; J3010; J2765; J0330; J2405; J2704; J0690; J0131; 01710

== ENCOUNTER 2017-12-01 09:37 | Day surgery (SDC) | payer OTHER ==
[~2017-12-01 09:37] MED LIST changes: -CEFAZOLIN 2 GM/D5W RTU 2 GM/50 ML RTUPB IV PRN; +PROPOFOL INJ 200 MG/20 ML VIAL IV ONE; -RINGERS SOLUTION,LACTATED 1,000 ML IV PRN
[2017-12-01 11:49] VITALS: BP 134/70
--- NOTE | 2017-12-01 12:03 | Operative Report ---
Operative Report DATE OF SURGERY: 12/01/17 Operative Report: The risks, benefits and alternatives of the procedure including risks of bleeding, perforation requiring surgery are explained to the patient in detail and informed consent was obtained. Patient was taken to the endoscopy suite and placed in the left, lateral decubital position. Timeout was called. Propofol medication is administered. A rectal examination is done which did not reveal any masses, tears or fissures. An Olympus videoscope was inserted into the patient's rectum. The scope was then carefully advanced all the way to the cecum. The cecum was identified by the usual anatomical landmarks including the ileocecal valve as well as the appendiceal office. Photodocumentation is obtained. The scope was then sequentially pulled back via the various segments of the colon including the ascending colon, hepatic flexure, transverse colon, splenic flexure, descending colon and finally into the rectosigmoid portions of the colon. Retroflexion maneuvers performed. The risks benefits and alternatives of the procedure explained to the patient in detail and informed consent is obtained.A GIF Olympus video scope was inserted into the patient's mouth and hypopharynx, the esophagus is identified intubated and insufflated ,the scope was then advanced through the esophagus stomach and duodenum ,retroflexion maneuver is done, the esophagus stomach and first and second portions of the duodenum examined PREOPERATIVE DIAGNOSIS: Abnormal thickening of the small intestine by CT scan. Personal history of polyp POSTOPERATIVE DIAGNOSIS: Cecal polyp was removed via biopsy forceps. Diverticulosis. Internal hemorrhoids. Gastritis status post biopsy rule out Helicobacter pylori OPERATION: Colonoscopy with biopsy. EGD with biopsy SURGEON: JASMIN GARCIA ANESTHESIA: LMAC TISSUE REMOVED OR ALTERED: As noted above. COMPLICATIONS: None. ESTIMATED BLOOD LOSS: None. INTRAOPERATIVE FINDINGS: As noted above. PROCEDURE: Patient tolerated the procedure well. No immediate postprocedure complications are noted. Patient discharged in good condition. Discharge date 12/01/2017. Discharge diet: Regular. Discharge activity: Regular. 2-3 week follow-up to discuss findings. Patient is instructed call the office or proceed to the emergency room should there be any further problems or questions. We will wait on pathology.
== END 2017-12-01 11:45 | disposition home or self-care (01) ==
LOC: END 09:37
PROVIDERS: ATTEND Internal Medicine Gastroenterology
DX: K29.50 Unspecified chronic gastritis without bleeding (principal); D12.0 Benign neoplasm of cecum; K64.8 Other hemorrhoids; Z86.010 Personal history of colon polyps; E78.5 Hyperlipidemia, unspecified; I10 Essential (primary) hypertension; E07.9 Disorder of thyroid, unspecified; R73.01 Impaired fasting glucose; Z86.73 Personal history of transient ischemic attack (TIA), and cerebral infarction without residual deficits; Z88.5 Allergy status to narcotic agent
CPT/HCPCS: 43239; 45380; 88305 ×2; J2704; 813

== ENCOUNTER → 2019-04-08 | Outpatient (CLI) | payer OTHER | LOC: SP 14:23 | PROVIDERS: ATTEND Specialist | DX: R07.9 Chest pain, unspecified (principal) | CPT/HCPCS: 93306 ==

== ENCOUNTER → 2019-05-05 | Outpatient (CLI) | payer OTHER ==
[~2019-05-05] MED LIST changes: -PROPOFOL INJ 200 MG/20 ML VIAL IV ONE; +REGADENOSON INJ 0.4 MG/5 ML DISP.SYRIN IV ONE
--- NOTE | 2019-05-05 23:58 | DRAGON STRESS TEST REPORT ---
ntravenous Lexiscan Cardiolite stress test using single photon emmision computerized tomography. Date of procedure: 05/05/2019. Ordering Provider: Dr. Ophelia Mai.Patient's status: Out Patient. Indication: Chest pain. Coronary risk factors: Age, and hypertension. Resting EKG: Sinus Rhythm. Nonspecific T changes in leads III and aVF. Stress EKG: No changes of ischemia. Reason for termination: Protocol. Conclusions: Normal EKG and hemodynamic response to IV Lexiscan. Nuclear data: At rest the patient was given 15.92 millicuries of technetium 99m sestamibi injected intravenously. As per protocol rest gated SPECT images were obtained. Subsequently the patient was given intravenous Lexiscan at a dose of 0.4 mg in 5 mL intravenously, followed by flush with normal saline. Subsequently the stress dose of 47.3 millicuries of technetium 99m sestamibi was injected intravenously. As per protocol stress gated images were obtained. Nuclear interpretation: This is a poor quality study. Review of images showed that there was diaphragmatic attenuation artifact and bowel contamination artifact of the inferior wall. There is a small area of perfusion defect involving the left ventricle apex and the mild perfusion defect of the inferior wall in both the rest and stress images. These areas, along with the other segments of the myocardium had normal motion contraction and thickening by gated study. Hence this is deemed to be a soft tissue attenuation artifact. The rest of the myocardial segments had normal perfusion at rest and normal perfusion post IV Lexiscan infusion. All segments of the myocardium had normal motion, contraction, and thickening by gated study. T. I D. ratio was normal at 1.05. There is no transient ischemic dilatation of the left ventricle. Computer read rest, and stress left ventricular ejection fraction were 44 %, and 51 %, respectively. Visually both the stress and rest ejection fractions were normal, and greater than 55%. Conclusion: 1. There is no scintigraphic evidence of Lexiscan induced myocardial ischemia. 2. There is no scintigraphic evidence of myocardial infarction/scar. Recommendations: 1. Check echo for LV ejection fraction correlation. 2. Aggressive risk factor modification, and treating the underlying co- morbidities. [facility]
== END ==
LOC: RAD 07:21
PROVIDERS: ATTEND Specialist
DX: R07.9 Chest pain, unspecified (principal)
CPT/HCPCS: 93017; 78452; A9500; J2785; Q9969

== ENCOUNTER 2019-12-30 06:56 | Day surgery (SDC) | payer OTHER ==
[2019-12-30] MEDS ORDERED: PROPOFOL INJ 200 MG/20 ML VIAL IV ONE (07:31)
[2019-12-30] MEDS ORDERED: LIDOCAINE 2% INJ-PF (20 MG/ML) 10 ML AMPUL ONE (07:31)
--- NOTE | 2019-12-30 10:38 | Operative Report ---
Operative Report DATE OF SURGERY: 12/30/19 Operative Report: The risk, benefits and alternatives of the procedure including the risk of bleeding, perforation requiring surgery were explained to the patient in detail and informed consent has been obtained. Patient is placed in a left, lateral decubital position. Timeout was called. Propofol medication is administered. Rectal examination is done which did not reveal any masses, tears or fissures. An Olympus videoscope was introduced into the patient's rectum. Scope was then carefully advanced all the way to the cecum. The cecum was identified by the usual anatomical landmarks including the ileocecal valve as well as the appendiceal office. Photodocumentation is obtained the scope was then sequentially pulled back via the various segments of the colon including the ascending colon, hepatic flexure, transverse colon, splenic flexure, descending colon finally into the rectosigmoid portions of the colon. Retroflexion maneuvers performed. The risks benefits and alternatives of the procedure explained to the patient in detail and informed consent is obtained.A GIF Olympus video scope was inserted into the patient's mouth and hypopharynx, the esophagus is identified intubated and insufflated, the scope was then advanced through the esophagus stomach and duodenum ,retroflexion maneuver is done, the esophagus stomach and first and second portions of the duodenum examined PREOPERATIVE DIAGNOSIS: Blood in stool. Family history of colorectal cancer POSTOPERATIVE DIAGNOSIS: Diverticulosis without any evidence of diverticulitis. Internal hemorrhoids. Random biopsies right-hand side of the colon. Gastritis status post biopsy OPERATION: Colonoscopy with biopsy. EGD with biopsy SURGEON: JASMIN GARCIA ANESTHESIA: LMAC TISSUE REMOVED OR ALTERED: As noted above. COMPLICATIONS: None. ESTIMATED BLOOD LOSS: None. INTRAOPERATIVE FINDINGS: As noted above. PROCEDURE: Patient tolerated the procedure well. No immediate postprocedure complications are noted. Patient is discharged in good condition. Discharge date 12/30/2019. Discharge diet: Regular. Discharge activity: Regular. 2 to 3-week follow-up to discuss findings. Patient is instructed to call the office or proceed to the emergency room should there be any further problems or questions. Wait on the pathology. 5-year surveillance colonoscopy
[2019-12-30 11:26] VITALS: BP 132/68
== END 2019-12-30 11:30 | disposition home or self-care (01) ==
LOC: END 06:56
PROVIDERS: ATTEND Internal Medicine Gastroenterology
DX: K57.30 Diverticulosis of large intestine without perforation or abscess without bleeding (principal); K64.8 Other hemorrhoids; K29.50 Unspecified chronic gastritis without bleeding; K92.1 Melena; E78.2 Mixed hyperlipidemia; Z86.010 Personal history of colon polyps; E07.9 Disorder of thyroid, unspecified; I10 Essential (primary) hypertension; Z79.82 Long term (current) use of aspirin; Z79.899 Other long term (current) drug therapy; Z86.73 Personal history of transient ischemic attack (TIA), and cerebral infarction without residual deficits; Z88.5 Allergy status to narcotic agent; Z88.8 Allergy status to other drugs, medicaments and biological substances; Z80.0 Family history of malignant neoplasm of digestive organs; G47.33 Obstructive sleep apnea (adult) (pediatric); E66.9 Obesity, unspecified
CPT/HCPCS: 43239; 45380; 88305 ×2; 00813; J2704; J3490; 813

== ENCOUNTER 2020-04-07 12:15 | Emergency (ER) | payer OTHER ==
[2020-04-07 12:58] LABS: APPEARANCE,URINE CLEAR; BILIRUBIN,URINE NEGATIVE (NEGATIVE); COLOR,URINE STRAW; GLUCOSE, URINE NEGATIVE (NEGATIVE); KETONES,URINE NEGATIVE (NEGATIVE); LEUKOCYTE ESTERASE,URINE NEGATIVE (NEGATIVE); NITRITE,URINE NEGATIVE (NEGATIVE); PROTEIN,URINE NEGATIVE (NEGATIVE); URINE SPECIFIC GRAVITY 1.003; UROBILINOGEN,URINE NEGATIVE mg/dL (<2.0)
[2020-04-07 13:14] LABS: ABSOLUTE EOSINOPHILS # (AUTO) 0.1 10^3/uL (0.0-0.6); ABSOLUTE LYMPHOCYTES (AUTO) 1.5 10^3/uL (0.5-4.7); ABSOLUTE MONOCYTES (AUTO) 0.3 10^3/uL (0.1-1.4); ABSOLUTE NEUT (AUTO) 2.6 10^3/uL (1.7-8.2); BASOPHILS % (AUTO) 0.6 % (0-2); HEMATOCRIT 44.9 % (37.9-51.0); HEMOGLOBIN 15.2 g/dL (13.5-17.0); MEAN CORPUSCULAR HEMOGLOBIN 30.6 pg (27.0-33.4); MEAN CORPUSCULAR HGB CONC 33.9 g/dL (32.0-36.0); MEAN CORPUSCULAR VOLUME 90 fl (80-97); MONOCYTES % (AUTO) 7.7 % (3-13); PLATELET COUNT 215 10^3/uL (150-450); RED BLOOD COUNT 4.97 10^6/uL (4.35-5.55); RED CELL DISTRIBUTION WIDTH 13.6 % (11.5-14.0); SEGMENTED NEUTROPHILS % (AUTO) 56.7 % (42-78); TOTAL CELLS COUNTED % (AUTO) 100 %; WHITE BLOOD COUNT 4.6 10^3/uL (4.0-10.5)
--- NOTE | 2020-04-07 13:19 | RADIOLOGY REPORT (SQ) ---
EXAM DESCRIPTION: CHEST SINGLE VIEW IMAGES COMPLETED DATE/TIME: 04/07/2020 1:05 pm REASON FOR STUDY: chest pain COMPARISON: 12/30/2014 EXAM PARAMETERS: NUMBER OF VIEWS: One view. TECHNIQUE: Single frontal radiographic view of the chest acquired. RADIATION DOSE: NA LIMITATIONS: None. FINDINGS: LUNGS AND PLEURA: No opacities, masses or pneumothorax. No pleural effusion. MEDIASTINUM AND HILAR STRUCTURES: No masses. Contour normal. HEART AND VASCULAR STRUCTURES: Heart normal in size. Normal vasculature. BONES: No acute findings. HARDWARE: None in the chest. OTHER: No other significant finding. IMPRESSION: NO ACUTE RADIOGRAPHIC FINDING IN THE CHEST. TECHNICAL DOCUMENTATION: JOB ID: [id number] [employer]- All Rights Reserved Reading location - IP/workstation name: [email or web address]
[2020-04-07 13:25] LABS: ALBUMIN 4.4 g/dL (3.5-5.0); ANION GAP 9 (5-19); BILIRUBIN,DIRECT 0.2 mg/dL (0.0-0.4); BILIRUBIN,TOTAL 0.5 mg/dL (0.2-1.3); BLOOD UREA NITROGEN 20 mg/dL (7-20); CARBON DIOXIDE 28 mmol/L (22-30); CHLORIDE 104 mmol/L (98-107); GLUCOSE 112 mg/dL (75-110); NEONATAL BILIRUBIN RESULT 0.4 mg/dL (0.1-1.1); POTASSIUM 4.5 mmol/L (3.6-5.0); TOTAL PROTEIN 7.4 g/dL (6.3-8.2)
[2020-04-07 13:26] LABS: ALKALINE PHOSPHATASE 54 U/L (38-126); ASPARTATE AMINO TRANSFERASE 36 U/L (17-59); CALCIUM 9.9 mg/dL (8.4-10.2); CREATINE KINASE 264 U/L (55-170)
[2020-04-07 13:34] LABS: CREATINE KINASE MB 3.22 ng/mL (<4.55)
[2020-04-07 14:37] LABS: TROPONIN I < 0.012 ng/mL
--- NOTE | 2020-04-07 15:01 | ER Document Report ---
Entered by ARELI ALFARO SCRIBE 04/07/20 1300 Acting as scribe for:FAZAL PEREZ MD ED General - General Chief Complaint: Chest Pain > 30 Stated Complaint: CHEST PAIN Time Seen by Provider: 04/07/20 12:44 Primary Care Provider: DAREK HERNANDEZ MD [Primary Care Provider] - Follow up as needed Mode of Arrival: Ambulatory Information source: Patient Notes: This 64 year old male patient presents to the emergency department today with complaints of a sensation that his heart was beating irregular and fast today prior to arrival. Patient reports that he did not sleep well last night, only getting about 3 hours of sleep and he thinks it might be related. He woke up this morning and drove his to the [place] and then drove home. He felt tired when he got home so he laid down to take a nap. This is when he reports that he felt the irregular heartbeat. Patient then mentions "maybe I was just dreaming". He mentions vague nausea that only lasted for a minute or two the last few days, left wrist tingling which has since subsided, and chest pain that lasted for a few seconds prior to arrival. Patient states that he is followed by Dr. Virgen for cardiology and he mentions that he has had a cardiac catheterization and echocardiogram within the last 5 months that were unremarkable. TRAVEL OUTSIDE OF THE [place] IN LAST 30 DAYS: No - Related Data Allergies/Adverse Reactions: oxycodone HCl [From Percocet] Allergy (Severe, Verified 12/01/17 09:54) trouble breathing Past Medical History - General Information source: Patient - Social History Smoking Status: Never Smoker Cigarette use (# per day): No Frequency of alcohol use: Rare Drug Abuse: None Lives with: Family Family History: Reviewed & Not Pertinent Patient has homicidal ideation: No - Past Medical History Cardiac Medical History: Reports: Hx Hypertension GI Medical History: Reports: Hx Gastroesophageal Reflux Disease Musculoskeletal Medical History: Reports Hx Musculoskeletal Deformity, Reports Hx Musculoskeletal Trauma Past Surgical History: Reports: Hx Abdominal Surgery, Hx Appendectomy, Hx Bowel Surgery, Hx Cholecystectomy, Hx Orthopedic Surgery - right knee, left bicep reattachment, Hx Tonsillectomy - Immunizations Immunizations up to date: Yes Hx Diphtheria, Pertussis, Tetanus Vaccination: Yes - UNK Review of Systems - Review of Systems Constitutional: No symptoms reported EENT: No symptoms reported Cardiovascular: See HPI, Chest pain, Palpitations, Heart racing Respiratory: No symptoms reported Gastrointestinal: See HPI, Nausea Genitourinary: No symptoms reported Male Genitourinary: No symptoms reported Musculoskeletal: No symptoms reported Skin: No symptoms reported Hematologic/Lymphatic: No symptoms reported Neurological/Psychological: See HPI, Tingling - left wrist, gone now. -: Yes All other systems reviewed and negative Physical Exam - Vital signs Vitals: Temp Pulse Resp BP Pulse Ox 97.9 F 70 16 146/67 H 94 04/07/20 12:26 04/07/20 12:04/07/20 12:04/07/20 12:04/07/20 12:26 - Notes Notes: Physical Exam: General: Alert, appears well. HEENT: Normocephalic. Atraumatic. PERRL. Extraocular movements intact. Oropharynx clear. Neck: Supple. Non-tender. Respiratory: No respiratory distress. Clear and equal breath sounds bilaterally. Left anterior chest wall tenderness to palpation over the left pectoralis muscle, reproduces chief complaint. Cardiovascular: Regular rate and rhythm. Abdominal: Obese. Non-tender. No distension. Normal Bowel Sounds. Back: No gross abnormalities. Extremities: Moves all four extremities. Upper extremities: Normal inspection. Normal ROM. Lower extremities: Normal inspection. No edema. Normal ROM. Neurological: Normal cognition. AAOx4. Normal speech. Psychological: Normal affect. Normal Mood. Skin: Warm. Dry. Normal color. Course - Vital Signs Vital signs: Temp Pulse Resp BP Pulse Ox 97.9 F 70 12 153/94 H 98 04/07/20 12:26 04/07/20 12:26 04/07/20 15:01 04/07/20 15:01 04/07/20 15:01 - Laboratory Results Result Diagrams: 04/07/20 12:40 04/07/20 12:40 Laboratory Results Interpreted: 04/07/20 12:40 Est GFR (MDRD) Non-Af 59 L Glucose 112 H Creatine Kinase 264 H Critical Laboratory Results Reviewed: No Critical Results - Radiology Results Critical Radiology Results Reviewed: No Critical Results - Chest x-ray does not show acute cardiopulmonary process. - EKG Interpretation by Dc EKG shows normal: Sinus rhythm, [place], Intervals, QRS Complexes, ST-T Waves Rate: Normal - 71 Rhythm: NSR [place]/QRS: IVCD Discharge - Discharge Clinical Impression: Chest wall pain, Heart palpitations Condition: Stable Disposition: HOME, SELF-CARE Additional Instructions: Chest Wall Pain: Your chest pain has been diagnosed as coming from the chest wall. This is often caused by straining the muscles or joints in the chest during physical activity, direct trauma, coughing, or vigorous vomiting. Persons with arthritis are especially prone to this type of pain, due to inflammation of the cartilage joints near the breast bone. Occasionally, no cause can be found. Rest from strenuous physical activity. This kind of chest pain is usually made worse by movement of the chest. Depending on the symptoms, we may prescribe medicine for pain, muscle relaxation, and antiinflammatory effects. If the pain is new, and seems to be due to muscle strain, cold packs can help. Otherwise, apply gentle warmth to the painful area for 15 minutes every hour or two. You should contact the doctor immediately if things change. Further evaluation is needed if you develop a fever or cough, if the nature of the pain changes, or if you become short of breath. Palpitations (Irregular/Rapid Heartrate): Irregular or rapid heartbeat is called "palpitation." To diagnose the cause of palpitation, we have to "catch it in the act" with an EKG. Sinus Tachycardia: This is a rapid (but NORMAL) rhythm that can be due to fever, pain, anxiety, lack of sleep, over-exertion, or drugs. Cold medications, caffeine, and diet pills are particularly likely to cause tachycardia. Usually, all that's required is rest, reassurance, and avoiding caffeine, alcohol, nicotine, and unnecessary medicines. Paroxysmal Atrial Tachycardia (PAT): This abnormally rapid heartbeat is caused by a "short circuit" in the electrical system of the heart. It is not dangerous, unless other heart disease is present. These attacks of PAT may occur occasionally for years. Medication is available for treatment. Paroxysmal Atrial Fibrillation or Atrial Flutter: This is irregular electrical activity in the upper heart chamber. These abnormal rhythms often occur with valve disease or in hearts damaged by hardening of the arteries. These rhythms usually require further testing, for example a cardiac echo. Premature Beats: Extra beats occur more commonly after caffeine, nicotine, alcohol, cold pills, diet pills. Emotional stress or fatigue also provoke them. Extra beats are only dangerous when heart disease is present. They usually need no treatment. If they're frequent, or if evidence of heart disease develops, medication can be given to suppress them. If we were unable to "catch" the palpitations on EKG, you should try to get an EKG immediately if the symptoms begin again. Contact the physician at once if you develop persistent lightheadedness, shortness of breath, chest pain, or swelling of the ankles. Your evaluation today did not show any explanation for your chest discomfort, other than the tender area on your left pectoralis muscle region. There were no irregular heartbeat seen on monitoring today. Your lab work was normal, including negative serial cardiac enzymes. You should follow-up with Dr. Virgen if you have further episodes of irregular heartbeat. RETURN TO THE EMERGENCY ROOM IF ANY NEW OR WORSENING SYMPTOMS. Referrals: DAREK HERNANDEZ MD [Primary Care Provider] - Follow up as needed I personally performed the services described in the documentation, reviewed and edited the documentation which was dictated to the scribe in my presence, and it accurately records my words and actions.
[2020-04-07 16:10] VITALS: BP 134/87
--- NOTE | 2020-04-08 17:25 | EKG REPORT ---
SEVERITY:- ABNORMAL ECG - SINUS RHYTHM NONSPECIFIC INTRAVENTRICULAR CONDUCTION DELAY : Confirmed by: Ophelia Mai MD 08-Apr-2020 17:25:28
== END 2020-04-07 16:09 | disposition home or self-care (01) ==
LOC: ER 12:15
DX: R07.89 Other chest pain (principal); R00.2 Palpitations; I49.9 Cardiac arrhythmia, unspecified; I10 Essential (primary) hypertension
CPT/HCPCS: 36415; 71045; 80053; 81001; 82550; 82553; 84484; 85025; 93005; 93010; 99285